=== PATIENT | male | born 1940 ===

== ENCOUNTER 2018-08-14 10:37 | Outpatient (CLI) | payer MEDICARE, OTHER | END 2018-08-14 23:59 | disposition home or self-care (01) | LOC: CFH 10:37 | PROVIDERS: ATTEND Internal Medicine | DX: R91.1 Solitary pulmonary nodule (principal) | CPT/HCPCS: 71250; 94060; 94726; 94729 ==

== ENCOUNTER → 2019-02-11 | Outpatient (CLI) | payer MEDICARE, OTHER | END | disposition home or self-care (01) | LOC: CFH 09:13 | PROVIDERS: ATTEND Internal Medicine | DX: R91.8 Other nonspecific abnormal finding of lung field (principal); K76.89 Other specified diseases of liver; M25.78 Osteophyte, vertebrae; I25.10 Atherosclerotic heart disease of native coronary artery without angina pectoris | CPT/HCPCS: 71250 ==

== ENCOUNTER 2019-08-26 10:22 | Outpatient (CLI) | payer MEDICARE, OTHER | END 2019-08-26 23:59 | disposition home or self-care (01) | LOC: CFH 10:22 | PROVIDERS: ATTEND Internal Medicine | DX: R91.8 Other nonspecific abnormal finding of lung field (principal); J47.9 Bronchiectasis, uncomplicated; M51.34 Other intervertebral disc degeneration, thoracic region | CPT/HCPCS: 71250 ==